=== PATIENT | female | born 1935 | race Caucasian/White ===

== ENCOUNTER 2016-11-26 19:04 | Inpatient (IN) | payer OTHER ==
[~2016-11-26] VITALS: Ht 149.9 cm; Wt 55.4 kg
[2016-11-26 19:38] LABS: microscopic required? NO
[2016-11-26 19:43] LABS: BASOPHIL % 0.5 % (0-2); PLATELET COUNT 211 x10^3mcL (130-400)
[2016-11-26 19:45] LABS: urine erythrocyte NEGATIVE (NEGATIVE)
[2016-11-26 19:45] LABS: RED CELL DISTRIBUTION WIDTH 18.3 % (11.5-14.5)
[2016-11-26 19:56] LABS: CALCIUM 9.1 mg/dL (8.5-10.1); CARBON DIOXIDE 32.3 mmol/L (21-32); CHLORIDE SERUM 101 mmol/L (98-107); CREATININE SERUM 0.7 mg/dL (0.6-1.0); GLUCOSE SERUM 98 mg/dL (74-106); POTASSIUM SERUM 3.8 mmol/L (3.5-5.1); SODIUM SERUM 140 mmol/L (136-145)
[2016-11-26 20:00] LABS: ALBUMIN 3.6 g/dL (3.4-5.0); ALKALINE PHOSPHATASE 75 U/L (46-116); ALT/SGPT 26 U/L (14-59); AST/SGOT 23 U/L (15-37); BILIRUBIN TOTAL 0.4 mg/dL (0.20-1.00); CHOLESTEROL 198 mg/dL (<200); PHOSPHOROUS 3.6 mg/dL (2.5-4.9); TOTAL PROTEIN, SERUM 7.1 g/dL (6.4-8.2); URIC ACID 3.6 mg/dL (2.6-6.0)
[2016-11-26 20:04] LABS: HDL CHOLESTEROL 84 mg/dL (40-60)
[2016-11-26] MEDS ORDERED: HYDROCHLOROTH12.5 M2 PO (21:13)
[2016-11-26] MEDS ORDERED: ASPIR 8181 MG PO (21:14)
[2016-11-26] MEDS ORDERED: CARVEDILOL6.25 M1 PO (21:14)
[2016-11-26] MEDS ORDERED: SEROQUEL25 MG PO (21:15)
[2016-11-26] MEDS ORDERED: GABAPENTIN400 M1 PO (21:15)
[2016-11-26] MEDS ORDERED: ARICEPT10 MG PO (21:16)
[2016-11-26 21:36] LABS: MAGNESIUM 1.9 mg/dL (1.8-2.4)
[2016-11-26 21:40] LABS: CHOLESTEROL/HDL RATIO 2.4
[2016-11-26 21:44] LABS: FREE T4 0.84 ng/dL (0.76-1.46); FREE THYROXINE INDEX 2.4 ug/dL (1.4-4.5); T3 TOTAL 1.02 ng/mL; T4(THYROXINE) 6.8 ug/dL (4.7-13.3)
[2016-11-26 22:39] VITALS: BP 149/59
[2016-11-26 22:40] VITALS: BP 149/59
[2016-11-27 03:44] LABS: BASOPHIL % 0.6 % (0-2); PLATELET COUNT 197 x10^3mcL (130-400)
[2016-11-27 03:46] LABS: CARBON DIOXIDE 30.9 mmol/L (21-32); CHLORIDE SERUM 104 mmol/L (98-107); CREATININE SERUM 0.6 mg/dL (0.6-1.0); GLUCOSE SERUM 81 mg/dL (74-106); POTASSIUM SERUM 3.6 mmol/L (3.5-5.1); SODIUM SERUM 140 mmol/L (136-145)
[2016-11-27 05:30] VITALS: BP 123/45
[2016-11-27 08:31] VITALS: BP 102/80
[2016-11-27 13:55] VITALS: BP 132/58
[2016-11-27 17:48] VITALS: BP 132/53
[2016-11-27 20:45] VITALS: BP 115/69
[2016-11-28 05:49] VITALS: BP 122/69
[2016-11-28 07:04] LABS: CHLORIDE SERUM 106 mmol/L (98-107); POTASSIUM SERUM 3.7 mmol/L (3.5-5.1); SODIUM SERUM 143 mmol/L (136-145)
[2016-11-28 07:05] LABS: CALCIUM 8.7 mg/dL (8.5-10.1); CREATININE SERUM 0.6 mg/dL (0.6-1.0); GLUCOSE SERUM 84 mg/dL (74-106)
[2016-11-28 08:39] VITALS: BP 110/51
[2016-11-28 12:03] VITALS: BP 135/51
[2016-11-28 12:25] VITALS: BP 110/51
== END 2016-11-28 13:10 | disposition home or self-care (01) | DRG 56 ==
LOC: ED 19:04 → DU 20:57
PROVIDERS: Emergency Medicine; ADMIT Student in an Organized Health Care Education/Training Program
DX: G30.9 Alzheimer's disease, unspecified (principal); N17.0 Acute kidney failure with tubular necrosis; G93.41 Metabolic encephalopathy; F05 Delirium due to known physiological condition; F02.80 Dementia in other diseases classified elsewhere, unspecified severity, without behavioral disturbance, psychotic disturbance, mood disturbance, and anxiety; I10 Essential (primary) hypertension; M19.90 Unspecified osteoarthritis, unspecified site; E03.9 Hypothyroidism, unspecified; Z66 Do not resuscitate; Z68.24 Body mass index [BMI] 24.0-24.9, adult; Z91.83 Wandering in diseases classified elsewhere
CPT/HCPCS: 82962; 83880; 84439; J7030; Q0092

== ENCOUNTER 2016-12-21 15:50 | Emergency (ER) | payer OTHER ==
[~2016-12-21] VITALS: Ht 149.9 cm; Wt 54.4 kg
[~2016-12-21 15:50] MED LIST: ARICEPT10 MG PO; ASPIR 8181 MG PO; CARVEDILOL6.25 M1 PO; GABAPENTIN400 M1 PO; HYDROCHLOROTH12.5 M2 PO; SEROQUEL25 MG PO
[2016-12-21 16:54] LABS: BASOPHIL % 0.7 % (0-2); PLATELET COUNT 235 x10^3mcL (130-400); RED CELL DISTRIBUTION WIDTH 17.1 % (11.5-14.5)
[2016-12-21 17:02] LABS: CARBON DIOXIDE 27.9 mmol/L (21-32); CHLORIDE SERUM 98 mmol/L (98-107); GLUCOSE SERUM 97 mg/dL (74-106); POTASSIUM SERUM 3.4 mmol/L (3.5-5.1); SODIUM SERUM 135 mmol/L (136-145)
[2016-12-21 17:07] LABS: ALBUMIN 3.8 g/dL (3.4-5.0); ALKALINE PHOSPHATASE 79 U/L (46-116); ALT/SGPT 21 U/L (14-59); AST/SGOT 24 U/L (15-37); BILIRUBIN TOTAL 0.52 mg/dL (0.20-1.00); TOTAL PROTEIN, SERUM 7.3 g/dL (6.4-8.2)
[2016-12-21 17:18] LABS: microscopic required? NO
[2016-12-21 17:28] LABS: UA SPECIFIC GRAVITY 1.015 (1.005-1.035); urine erythrocyte NEGATIVE (NEGATIVE)
[2016-12-21 18:09] VITALS: BP 112/54
== END 2016-12-21 18:32 | disposition home or self-care (01) ==
LOC: ED 15:50
PROVIDERS: Emergency Medicine
DX: R44.3 Hallucinations, unspecified (principal); T43.595A Adverse effect of other antipsychotics and neuroleptics, initial encounter; Y92.89 Other specified places as the place of occurrence of the external cause
CPT/HCPCS: 36415